=== PATIENT | male | born 1950 | race Caucasian/White ===

== ENCOUNTER → 2017-01-07 | Outpatient (CLI) | payer MEDICARE | LOC: HEART 5 08:25 | DX: R07.9 Chest pain, unspecified (principal); E11.65 Type 2 diabetes mellitus with hyperglycemia; E66.9 Obesity, unspecified; I10 Essential (primary) hypertension; Z87.891 Personal history of nicotine dependence | CPT/HCPCS: 78452; A9502 ==

== ENCOUNTER → 2017-02-28 | Outpatient (CLI) | payer MEDICARE | LOC: KOH-I 12:00 | DX: R07.9 Chest pain, unspecified (principal); I51.7 Cardiomegaly; Z98.890 Other specified postprocedural states | CPT/HCPCS: 71020 ==

== ENCOUNTER → 2021-03-22 | Day surgery (SDC) | payer MEDICARE ==
[~2021-03-22] MED LIST: ALLOPURINOL300 MG PO; AZOR 5-20 MG T1 EACH PO; BYSTOLIC10 MG PO; CALCIUM CITRAT200 MG PO; CEFUROXIME500 MG PO; CLOPIDOGREL75 MG PO; CRESTOR10 MG PO; DAILY VALUE1 EACH PO; FERROUS GLUCON324 M1 PO; GLUCOTROL5 MG PO; INDOMETHACIN25 MG PO; ISOSORBIDE MONO30 MG PO; MEDROL4 MG PO; NITROSTAT 0.40.4 MG SL; PROVENTIL HFA6.7 GM INH; RYBELSUS3 MG PO; ST. JOSEPH ASPI81 M1 PO; SYNTHROID75 MCG PO; TESSALON PERLE100 MG PO; TOUJEO MAX300 UNIT/1 SQ; VITAMIN B-12500 MCG PO; VITAMIN D3125 MCG PO
== END | disposition home or self-care (01) ==
LOC: OR 05:53
PROVIDERS: Surgery
PROC: 0DJ08ZZ Inspection of Upper Intestinal Tract, Via Natural or Artificial Opening Endoscopic (ICD-10-PCS; principal; 2021-03-22 07:30)
PROC: 0DJD8ZZ Inspection of Lower Intestinal Tract, Via Natural or Artificial Opening Endoscopic (ICD-10-PCS; 2021-03-22 07:30)
DX: R19.5 Other fecal abnormalities (principal); R10.13 Epigastric pain; I25.10 Atherosclerotic heart disease of native coronary artery without angina pectoris; I10 Essential (primary) hypertension; E11.9 Type 2 diabetes mellitus without complications; E03.9 Hypothyroidism, unspecified; G89.29 Other chronic pain; M19.90 Unspecified osteoarthritis, unspecified site; K21.00 Gastro-esophageal reflux disease with esophagitis, without bleeding; E78.01 Familial hypercholesterolemia; M10.9 Gout, unspecified; Z20.822 Contact with and (suspected) exposure to COVID-19; Z98.84 Bariatric surgery status; Z93.1 Gastrostomy status; Z93.4 Other artificial openings of gastrointestinal tract status; Z95.1 Presence of aortocoronary bypass graft; Z79.82 Long term (current) use of aspirin; Z79.02 Long term (current) use of antithrombotics/antiplatelets; Z79.84 Long term (current) use of oral hypoglycemic drugs; Z79.899 Other long term (current) drug therapy; Z87.891 Personal history of nicotine dependence
CPT/HCPCS: 82962; J2704; J7120